=== PATIENT | male | born 1960 | race Caucasian/White ===

== ENCOUNTER 2018-08-03 18:34 | Emergency (ER) | payer BC ==
[2018-08-03] MEDS: HYDROCODONE/APAP (5/325) TAB PO (20:37)
== END 2018-08-03 22:34 | disposition home or self-care (01) ==
LOC: FTE 18:34
DX: S40.811A Abrasion of right upper arm, initial encounter (principal); S09.90XA Unspecified injury of head, initial encounter; R51 Headache; V49.10XA Passenger injured in collision with unspecified motor vehicles in nontraffic accident, initial encounter
CPT/HCPCS: 70450; 72125; 73030-50; 99284-25